=== PATIENT | male | born 2000 | race African-American/Black ===

== ENCOUNTER 2019-08-13 20:26 | Emergency (ER) | payer SELFPAY ==
--- NOTE | ~2019-08-13 | CT_ITS ---
EXAMINATION: CT abdomen pelvis w con DATE: 08/13/2019 22:08 INDICATION: Constipation. Nausea and vomiting. TECHNIQUE: Computed tomography (CT) of the abdomen and pelvis was performed with 100 mL Omnipaque 350 intravenous contrast. Automated exposure control and iterative reconstruction technique were employe d. The dose-length product was 1129.83 mGy-cm. COMPARISON: None. FINDINGS: The visualized portions of the lung bases demonstrated minimal atelectasis. No pleural effu little. The heart size is normal. No pericardial effusion. The liver, gallbladder, spleen, pancreas, ad renal glands, and kidneys are normal. There are no dilated loops of bowel. The appendix is normal. Th ere is mild mesenteric lymphadenopathy. There is no free intraperitoneal fluid. There is mild thoraco lumbar spondylosis. IMPRESSION: 1. Mild mesenteric lymphadenopathy, likely reactive. Reviewed, dictated and finalized at location A.
[2019-08-13 20:34] VITALS: BP 138/68; PULSE 95; RESP 18; TEMP 36.2; O2SAT 98
[2019-08-13 21:25] LABS: Basophils Percent Auto 0.3 % (0.2-1.2); Eosinophils Absolute Auto 0.2 K/mm3 (0-0.3); Eosinophils Percent Auto 2.6 % (0-4.4); Hematocrit 46.9 % (42.0-52.0); Hemoglobin 17.2 g/dL (14.0-18.0); Immature Granulocyte Absolute 0.02 K/mm3 (0.00-0.031); Immature Granulocyte Percent A 0.3 % (0-0.5); Lymphocytes Absolute Auto 2.91 K/mm3 (0.9-3.2); Lymphocytes Percent Auto 37.5 % (18.3-44.2); Mean Corpuscular HGB Conc 36.7 g/dl (32-36); Mean Corpuscular Hemoglobin 31.7 pg (26-34); Mean Corpuscular Volume 86.4 fl (80-100); Monocytes Absolute Auto 0.7 K/mm3 (0.1-0.6); Monocytes Percent Auto 8.8 % (2.6-8.5); Neutrophils Absolute Auto 3.9 K/mm3 (1.3-6.7); Neutrophils Percent Auto 50.5 % (45.5-73.1); Platelet Count Result 241 k/mm3 (150-375); Red Blood Count 5.43 M/mm3 (4.6-6.20); Red Cell Distribution Width 11.7 % (11.5-14.5); White Blood Count 7.8 K/mm3 (4.5-10.0)
[2019-08-13 21:27] LABS: Add Urine Microscopic? NO; Appearance Urine Clear (Clear); Bilirubin Urine Negative (Negative); Blood Urine Negative (Negative); Color Urine Yellow (Yellow); Glucose Urine UA Negative (Negative); Ketones Urine Negative (Negative); Leukocyte Esterase Ur Negative LEU/UL (Negative); Nitrate Urine Negative (Negative); Protein Urine Negative (Negative); Specific Grav Ur 1.028 (1.001-1.035); Urobilinogen Urine Negative mg/dL (<2.0)
--- NOTE | 2019-08-13 21:31 | ED.NAVMDI ---
HPI - Nausea/Vomiting/Diarrhea General Chief complaint: Nausea/Vomiting/Diarrhea Stated complaint: vomiting,dizzy,constipation Time Seen by Provider: 08/13/19 21:11 Source: RN notes reviewed History of Present Illness HPI Narrative: Patient presents emergency department from home for abdominal pain. Patient states he been having intermittent abdominal pain for the past 1 month. Pain is located in the upper abdomen described as sharp and stabbing he states is associated with nausea and vomiting intermittently he denies any fevers or chills chest pain shortness of breath diarrhea or any other symptoms. He states he is had no previous work-up for the abdominal pain. Denies taking any medication today Related Data Allergies Allergy/AdvReac Type Severity Reaction Status Date / Time No Known Allergies Allergy Verified 03/22/19 14:37 Review of Systems Review of Systems: Narrative: Gen.: Denies fevers or chills ENT: Denies congestion Respiratory: Denies shortness of breath or cough CV: Denies chest pain or palpitations GI: See HPI denies burning, urgency, frequency or hematuria Musculoskeletal: Denies back pain or muscle pain Neuro: Denies numbness, tingling, weakness or focal weakness Skin: Denies rash Except as documented, all other systems reviewed and negative PMFSH Past Medical History Medical History (Updated 08/13/19 @ 22:56 by Yoni Valdez DO) Patient denies significant medical history Social History Social History Smoking status: Never smoker Substance use type: marijuana Gender identity (if verbalized by the patient): Male Exam Narrative: Exam Narrative: APPEARANCE: No acute distress, nontoxic, resting in bed HEENT: Normocephalic, atraumatic, OMM RESPIRATORY: No respiratory distress, clear to auscultation bilaterally with no rhonchi wheezing or rales CARDIOVASCULAR: RRR s murmur ABDOMINAL: Soft, nondistended, tender palpation epigastric and right upper quadrant left upper quadrant no tenderness in right lower quadrant left lower quadrant, no rebound or guarding MUSCULOSKELETAl: Moves all extremities. No clubbing, cyanosis or edema. NEURO: Awake and alert. Following commands, speech normal, no focal deficits SKIN:: Warm, dry. Normal Color PSYCHIATRIC: Normal affect/mood Course Course Emergency Course: Patient states that they are feeling much better at this time. States abdominal pain has resolved. Repeat abdominal exam shows the patient's abdomen to be soft and nontender. Discussed with patient results of workup and diagnosis. Discussed need for follow-up with primary care physician, reasons to return to the emergency department in proper use of medication. Patient understands and agrees to current treatment plan. Discussed with patient concern of possible ulcer and need for follow-up with GI and EGD Vital Signs Vital signs: Vital Signs Temperature 97.1 F L 08/13/19 20:34 Pulse Rate 95 08/13/19 20:34 Respiratory Rate 18 08/13/19 20:34 Blood Pressure 138/68 08/13/19 20:34 Pulse Oximetry 98 08/13/19 20:34 Temperature 97.1 F L 08/13/19 20:34 Pulse Rate 76 08/13/19 22:37 Respiratory Rate 18 08/13/19 22:37 Blood Pressure 128/57 L 08/13/19 22:37 Pulse Oximetry 97 08/13/19 22:37 MDM - Nausea/Vomiting/Diarrhea MDM Narrative Medical decision making narrative: Patient's abdomen is soft without significant pain or signs of surgical abdomen on serial exams. Lab and x-ray evaluations are reviewed and patient is felt to be a reasonable candidate for outpatient management. Patient was instructed as to limitations of x-ray and laboratory evaluation and encouraged to return to ED or primary physician for repeat exam in 12 hours if continued or worsening pain Lab Data Result diagrams: 08/13/19 21:16 08/13/19 21:17 Labs: Lab Results 08/13/19 08/13/19 08/13/19 Range/Units 21:16 21:16 21:17
[2019-08-13 21:38] LABS: Alanine Aminotransferase 28 U/L (4-50); Albumin Level 4.6 g/dL (3.5-5.1); Alkaline Phosphatase 60 U/L (38-126); Aspartate Amino Transferase 26 U/L (17-59); Bilirubin,Total 0.4 mg/dL (0.2-1.3); Blood Urea Nitrogen 17 mg/dL (9-20); Carbon Dioxide 30 mmol/L (22-30); Chloride 102 mmol/L (98-107); Estimated CRCL calculation 140 ml/min; Estimated Glomerular Filt Rate > 60; Glucose 100 mg/dL (75-110); Lipase 102 U/L (23-300); Potassium 3.9 mmol/L (3.4-5.0); Sodium 139 mmol/L (137-145)
[2019-08-13] MEDS: ONDANSETRON INJ 4 MG/2 ML VIAL IV PUSH (21:43)
[2019-08-13] MEDS: LACTATED RINGERS 1,000 ML 999 ML IV CONT (21:43)
[2019-08-13 22:37] VITALS: BP 128/57; PULSE 76; RESP 18; O2SAT 97
== END 2019-08-13 23:07 | disposition home or self-care (01) ==
PROVIDERS: Emergency Provider Emergency Medicine
DX: R10.13 Epigastric pain (principal)
CPT/HCPCS: 36415; 74177; 80053; 81003; 83690; 85025; 96361; 96374; 96375; 99284; A9270; J0131; J2405; J7120; Q9967